=== PATIENT | male | born 1980 | race Caucasian/White ===

== ENCOUNTER 2024-04-28 16:59 | Emergency (ER) | payer OTHER, SELFPAY ==
[2024-04-28 17:13] VITALS: BP 130/86; PULSE 57; RESP 18; O2SAT 98; BMI 30.1
--- NOTE | 2024-04-28 17:24 | ED_ITS ---
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 He has a typical migraine that started last night light and it has been worse today. He gets photophobic. He can tell when it is coming on. He has frontal head pain in his head. No nuchal rigidity, no thunderclap nature to his headache. He is thinking about seeing a neurologist for this. He worse with primary care doctor in a line in [place]. He has been on a Triptan. That has not helped the headache today tried that 2 times I believe. He has had no focal neurologic complaints Related Data Home Medications ?Medication ?Instructions ?Recorded ?Confirmed [id number]-[id number] 1 cap PO QID PRN 04/28/24 04/28/24 50 mg-300 mg-40 mg capsule (Fioricet) escitalopram oxalate 20 mg tablet 20 mg PO DAILY 04/28/24 04/28/24 (Lexapro) rizatriptan .ROUTE .prn 04/28/24 Allergies Allergy/AdvReac Type Severity Reaction Status Date / Time Penicillins Allergy Severe Anaphylaxis Verified 04/28/24 17:16 amoxicillin Allergy Hives Verified 04/28/24 17:16 Review of Systems Status of ROS: Reports: 6 or more systems reviewed and unremarkable except as noted in History and below Narrative: This feels like a typical migraine him but maybe just slightly on the worse side PFSH PFSH Social History Smoking Status: Unknown if ever smoked service: Yes Exam Narrative: Exam Narrative: Objective: Vital signs are within normal limits He is alert orient x3 No apparent distress Alert orient x3 No facial asymmetry Pupils aggression light extraocular moves intact Neck is supple Neurologic upper lower extremities unremarkable, there is no focal weakness, no dysesthesia. Const: Vital Signs, click to edit/add: Vital Signs - 24 hr 04/28/24 17:13 Pulse Rate [Pulse Oximeter] 57 L Respiratory Rate 18 Blood Pressure [Ri ght Upper Arm] 130/86 Pulse Oximetry 98 Oxygen Delivery Me thod Room Air Course Vital Signs Vital signs: Initial Vital Signs Temperature Source Temporal Artery Scan 04/28/24 17:13 Pulse Rate 57 L 04/28/24 17:13 Respiratory Rate 18 04/28/24 17:13 Blood Pressure 130/86 04/28/24 17:13 Blood Pressure Mean 100 04/28/24 17:13 Blood Pressure Position Sitting 04/28/24 17:13 Pulse Oximetry 98 04/28/24 17:13 Oxygen Delivery Method Room Air 04/28/24 17:13 Vital Signs Pulse Rate 57 L 04/28/24 17:13 Respiratory Rate 18 04/28/24 17:13 Blood Pressure 130/86 04/28/24 17:13 Pulse Oximetry 98 04/28/24 17:13 Oxygen Delivery Method Room Air 04/28/24 17:13 Pulse Rate 57 L 04/28/24 17:13 Respiratory Rate 18 04/28/24 17:13 Blood Pressure 130/86 04/28/24 17:13 Pulse Oximetry 98 04/28/24 17:13 Oxygen Delivery Method Room Air 04/28/24 17:13 Medications Administered Medications: Discontinued Medications Generic Name Dose Route Start Last Admin Trade Name Freq PRN Reason Stop Dose Admin Diphenhydramine HCl 50 mg 04/28/24 17:23 04/28/24 17:40 Diphenhydramine 50 Mg/Ml Inj IVP 04/28/24 17:24 50 mg ONCE ONE Administration Sodium Chloride 1,000 mls @ 6,000 mls/hr 04/28/24 17:30 04/28/24 18:47 0.9 % Sodium Chloride 1000 Ml IV 04/28/24 17:39 Infused .Q10M MIKE Infusion Metoclopramide HCl 10 mg/ 102 mls @ 306 mls/hr 04/28/24 17:23 04/28/24 18:47 Sodium Chloride IV 04/28/24 17:24 Infused ONCE ONE Infusion Ketorolac Tromethamine 30 mg 04/28/24 17:23 04/28/24 17:40 Ketorolac 30 Mg/Ml Inj IVP 04/28/24 17:24 30 mg ONCE ONE Administration Medical Decision Making MDM Narrative Medical decision making narrative: [age] year white male with history of longstanding migraine headaches with a migraine headache. He reports that is very classic for the symptoms he gets. I suggest that he consult with a neurologist regarding headache management since he seems to be struggling with this. They could certainly see institution such as the [facility], and they may need a referral. Patient will today be given 1 L normal saline, IV Toradol 30 mg, IV Benadryl 50 mg, IV Reglan 10 mg. Disposition will be home with his and rest light activity fluids and then follow up with primary care as needed, recommend neurologic consultation as well given the frequency and chronicity of his headaches. Discharge Plan Discharge Clinical Impression: Migraine Patient Disposition: Home w/ Parent or Adult Condition: Stable Additional Instructions: Rest, light activity, follow up with primary care as needed, consider neurology consultation for headaches, continue home meds. Return as needed. Activity Level: Light activity Discharge Diet: Regular Prescriptions: No Action escitalopram oxalate [Lexapro] 20 mg tablet 20 mg PO DAILY rizatriptan .ROUTE .prn [id number]-[id number] [Fioricet] 50-300-40 mg capsule 1 cap PO QID PRN Stand Alone Forms: [facility] Info Instructions
[2024-04-28] MEDS: diphenhydrAMINE 50 MG/ML inj IVP (17:40)
[2024-04-28] MEDS: 0.9 % SODIUM CHLORIDE 1000 ml 1,000 ML 6000 ML IV (17:40)
[2024-04-28] MEDS: METOCLOPRAMIDE HCL 10 MG in 0.9 % SODIUM CHLORIDE 100 ml 100 ML 306 MG IV (17:40)
[2024-04-28] MEDS: KETOROLAC 30 MG/ML inj IVP (17:40)
== END 2024-04-28 18:43 | disposition home or self-care (01) ==
LOC: ED 17:58
PROVIDERS: Emergency Provider Family Medicine
DX: G43.909 Migraine, unspecified, not intractable, without status migrainosus (principal)
CPT/HCPCS: 96374; 96375; 99283; 99284; J1200; J1885; J2765; J7030

== ENCOUNTER 2024-05-28 20:37 | Emergency (ER) | payer OTHER, SELFPAY ==
[2024-05-28 20:45] VITALS: BP 142/78; PULSE 63; RESP 18; TEMP 36.7; O2SAT 96; BMI 36.3
--- NOTE | 2024-05-28 21:08 | CRLHL7_ITS ---
For Patients: As a result of the Century Cures Act, medical imaging exams and procedure reports are released immediately into your electronic medical record. You may view this report before your referring provider. If you have questions, please contact your health care provider. INDICATION: Cervical spine Pain at occiput TECHNIQUE: Cervical spine radiograph 3 views COMPARISON: None FINDINGS: Bone: No acute fractures or aggressive bone lesions are identified. The dens is partially obscured by the teeth and the skullbase on the open mouth odontoid view. Alignment is normal. Disc: Mild degenerative disc disease is present at C6-7. The facet joints are unremarkable. Soft tissue: Unremarkable. No radiopaque foreign bodies are seen. IMPRESSION: 1. No acute osseous injuries or abnormalities are noted. Dictated by Inocencio Nassar MD @ 05/28/2024 10:00:12 PM Dictated by: Inocencio Nassar MD @ 05/28/2024 22:00:15 (Electronically Signed)
--- NOTE | 2024-05-28 21:17 | ED_ITS ---
HPI - General Adult General Date Seen: 05/28/24 Chief complaint: Neck Injury/Pain Stated complaint: Neck pain, dizziness Time Seen by Provider: 05/28/24 20:54 Source: patient Mode of arrival: ambulatory Limitations: no limitations History of Present Illness HPI narrative: Patient is a 43-year-old male presenting to the emergency department for neck pain and dizziness. Neck pain is been going on for quite a while now but seems to be worse over the past month and a half. Was seen in primary care provider but was not getting any imaging so he scheduled a new appointment with a new provider on 06/15. 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 States he has been having neck issues for a long time. Pain is mostly around T1-C7 and at the base of his occiput. States the pain and they saw so put goes up the right side of his head and crosses over the hat line. States he is always wearing a baseball cap. States he has never had an x-ray of his neck done. Patient is also here for dizziness that started today. States is worse when he moves his head side to side. Does not state of 1 signs worse than the other. Is not dizzy at rest. Only notices when he moves. Never had these symptoms before. States he is typically very well hydrated is no history of electrolyte issues. No other concerns noted. Denies numbness, weakness, fevers, chills, diarrhea, constipation, abdominal pain, chest pain, shortness of breath. Related Data Home Medications ?Medication ?Instructions ?Recorded ?Confirmed unbjicecjb-uwacvulashrwp-ptrhlpuk 1 cap PO QID PRN 04/28/24 05/28/24 50 mg-300 mg-40 mg capsule (Fioricet) escitalopram oxalate 20 mg tablet 20 mg PO DAILY 04/28/24 05/28/24 (Lexapro) rizatriptan .Route .prn 04/28/24 Previous Rx's ?Medication ?Instructions ?Recorded meclizine 25 mg tablet 25 mg PO QID #20 tabs 05/28/24 Allergies Allergy/AdvReac Type Severity Reaction Status Date / Time Penicillins Allergy Severe Anaphylaxis Verified 05/28/24 20:49 amoxicillin Allergy Hives Verified 05/28/24 20:49 Review of Systems Status of ROS: Reports: 10 or more systems reviewed and unremarkable except as noted in History and below [facility] Social History Smoking Status: Heavy tobacco smoker What tobacco products do you use: cigarettes Smoking packs per day: 1 Smoking cigarettes per day: 20.0 Years smoked: 28 Smoking pack-years: 28.00 Do you use any of these nicotine containing products: None Second hand tobacco smoke exposure: No How often do you have a drink containing alcohol: never AUDIT-C Alcohol total score: 0 Non-prescribed substance use: marijuana (any form) service: Yes Exam Narrative: Exam Narrative: Const: Well-nourished, Well-developed, in mild distress Eyes: PERRL, no conjunctival injection, and symmetrical lids HENT: Atraumatic external nose and ears. Moist mucous membranes. Neck: Symmetric, trachea midline, No thyromegaly. CVS: RRR, No murmurs or gallops. Peripheral pulses 2+ and equal in all extremities RESP: Unlabored respiratory effort. Clear to auscultation bilaterally. GI: Nontender/Nondistended, No rebound or guarding. MSK:Extremities w/o deformity, Normal Active ROM, tenderness noticed at the base of the occiput and continues to be tender about usp up the right side of his occiput Skin: Warm, Dry. No rashes or lesions. Neuro: Normal Muscle tone, No focal neurological deficits. Psych: Awake, Alert, & Oriented x3. Appropriate mood and affect. Const: Vital Signs, click to edit/add: Vital Signs - 24 hr 05/28/24 20:45 05/28/24 21:26 05/28/24 21:32 Temperature 98.1 F Pulse Rate 64 65 Pulse Rate [Pulse Oximeter] 63 Respiratory Rate 18 20 18 Blood Pressure 122/81 114/80 Blood Pressure [Ri ght Upper Arm] 142/78 H Pulse Oximetry 96 95 96 Oxygen Delivery Me thod Room Air Room Air Room Air 05/28/24 22:02 05/28/24 22:32 Temperature Pulse Rate 58 L 58 L Pulse Rate [Pulse Oximeter] Respiratory Rate 18 18 Blood Pressure 125/81 106/90 H Blood Pressure [Ri ght Upper Arm] Pulse Oximetry 97 95 Oxygen Delivery Me thod Room Air Room Air Course Vital Signs Vital signs: Initial Vital Signs Temperature 98.1 F 05/28/24 20:45 Temperature Source Temporal Artery Scan 05/28/24 20:45 Pulse Rate 63 05/28/24 20:45 Respiratory Rate 18 05/28/24 20:45 Blood Pressure 142/78 H 05/28/24 20:45 Blood Pressure Mean 99 05/28/24 20:45 Blood Pressure Position Sitting 05/28/24 20:45 Pulse Oximetry 96 05/28/24 20:45 Oxygen Delivery Method Room Air 05/28/24 20:45 Vital Signs Temperature 98.1 F 05/28/24 20:45 Pulse Rate 63 05/28/24 20:45 Respiratory Rate 18 05/28/24 20:45 Blood Pressure 142/78 H 05/28/24 20:45 Pulse Oximetry 96 05/28/24 20:45 Oxygen Delivery Method Room Air 05/28/24 20:45 Temperature 98.1 F 05/28/24 20:45 Pulse Rate 58 L 05/28/24 22:32 Respiratory Rate 18 05/28/24 22:32 Blood Pressure 106/90 H 05/28/24 22:32 Pulse Oximetry 95 05/28/24 22:32 Oxygen Delivery Method Room Air 05/28/24 22:32 Medications Administered Medications: Discontinued Medications Generic Name Dose Route Start Last Admin Trade Name Freq PRN Reason Stop Dose Admin Ketorolac Tromethamine 30 mg 05/28/24 21:08 05/28/24 21:22 Ketorolac 30 Mg/Ml Inj IM 05/28/24 21:09 30 mg ONCE ONE Administration Meclizine HCl 25 mg 05/28/24 21:08 05/28/24 21:22 Meclizine Hcl 25 Mg Tablet PO 05/28/24 21:09 25 mg ONCE ONE Administration Medical Decision Making [facility] Narrative Medical decision making narrative: Patient is a 43-year-old male presenting for headache, neck pain, dizziness. Headache and neck pain have been going on for quite a while. The pain at the base of his also put might be related to his hat. He states so is wearing a baseball cap an this could be depression on the nerve causing pain considering the area is tender to palpation of along the right side of the occiput. Will try Toradol for this pain. Will soon x-ray to look for signs of fractures or other injuries. This dizziness started today. The differential diagnosis of vertigo is broad and includes common etiologies such as menieres disease, labyrinthitis, benign positional vertigo, otitis media, etc. More serious etio logies considered include central etiologies such as tumor, intracerebral bleed, dissection, ischemic cerebral vascular accident. At this time though considering symptoms are worse with head movement this seems most likely peripheral in nature. No history of strokes in this patient is not have risk factors for it at this time. I do not believe head CT is necessary. Will get some basic lab work CBC and BMP showed no acute concerning abnormalities. Toradol did not help the symptoms in the meclizine also did not help with the symptoms. I tried Epleys maneuver but was unsuccessful. I spoke to him about doing a CT but explained to not believe we will find any abnormalities. At this time is not want did head CT. We will try discharged him with Toradol, meclizine and prednisone. Eulalia neumann is because I believe there is some inflammation that is causing some of this pain. Patient is agreeable to this plan. Lab Data Labs: Lab Results 05/28/24 Range/Units 21:17 WBC 7.67 (4.50-11.00) K/uL RBC 4.78 (4.30-5.90) m/uL Hgb 14.9 (13.5-17.5) gm/dL Hct 42.5 (37.0-53.0) % MCV 89 (80-100) fL MCH 31 (26-34) pg MCHC 35 (32-36) gm/dL RDW Coeff of Vladislav 12.8 (11.5-15.5) % Plt Count 191 (140-440) K/uL Neut % (Auto) 50.1 (42.0-72.0) % Lymph % (Auto) 41.5 (20-44) % [place] % (Auto) 6.4 (0.0-11.0) % Eos % (Auto) 1.2 (0.0-7.0) % Baso % (Auto) 0.8 (0.0-3.0) % Neut # (Auto) 3.85 (1.7-7.0) K/uL Lymph # (Auto) 3.18 H (0.90-2.90) K/uL [place]wood # (Auto) 0.50 (0.00-0.90) K/UL Eos # (Auto) 0.09 (0.00-0.50) K/uL Baso # (Auto) 0.06 (0.00-0.30) K/uL Abs Immat Gran (auto) 0.00 (0.00-0.30) K/uL Imm/Tot Granulo (auto) 0.0 % Sodium 141 (135-149) mmol/L Potassium 3.3 L (3.6-5.1) mmol/L Chloride 106 (96-114) mmol/L Carbon Dioxide 27 (20-32) mmol/L Anion Gap 8 (7-15) mEq/L BUN 10 (5-24) mg/dL Creatinine 1.0 (0.5-1.5) mg/dL Estimated Creat Clear 103.54 Estimated GFR 97 ml/min Glucose 91 (60-115) mg/dL Calcium 9.3 (8.4-10.6) mg/dL Discharge Plan Discharge Clinical Impression: Vertigo Neck strain Qualifiers: Encounter type: initial encounter Qualified Code(s): S16.1XXA - Strain of muscle, fascia and tendon at neck level, initial encounter Patient Disposition: Home, Self-Care Condition: Stable Instructions: Vertigo (DC) Additional Instructions: Try using the Toradol and prednisone to see if it helps with the pain and inflammation that may be causing your pain. These were prescribed active instymeds think we picked up near the front office developer. I also sent meclizine to your pharmacy which can help with peripheral vertigo. Return for new or worsening symptoms. Prescriptions: New meclizine 25 mg tablet 25 mg PO QID Qty: 20 0RF No Action escitalopram oxalate [Lexapro] 20 mg tablet 20 mg PO DAILY rizatriptan .Route .prn [id number]-ucoaanoyhprqb-[id number] [Fioricet] 50-300-40 mg capsule 1 cap PO QID PRN Follow Up/Referrals: Provider,Not a Local [Primary Care Provider] - Stand Alone Forms: [facility] Info Instructions
[2024-05-28 21:21] LABS: Basophils Absolute Auto 0.06 K/uL (0.00-0.30); Basophils Percent Auto 0.8 % (0.0-3.0); Eosinophils Absolute Auto 0.09 K/uL (0.00-0.50); Eosinophils Percent Auto 1.2 % (0.0-7.0); Hematocrit 42.5 % (37.0-53.0); Hemoglobin* 14.9 gm/dL (13.5-17.5); Lymphocytes Absolute Auto 3.18 K/uL (0.90-2.90); Lymphocytes Percent Auto 41.5 % (20-44); Mean Corpuscular HGB Conc 35 gm/dL (32-36); Mean Corpuscular Hemoglobin 31 pg (26-34); Mean Corpuscular Volume 89 fL (80-100); Monocytes Percent Auto 6.4 % (0.0-11.0); Neutrophils Absolute Auto 3.85 K/uL (1.7-7.0); Neutrophils Percent Auto 50.1 % (42.0-72.0); Platelet Count* 191 K/uL (140-440); RDW Coefficient of Variation % 12.8 % (11.5-15.5); Red Blood Count 4.78 m/uL (4.30-5.90); White Blood Count* 7.67 K/uL (4.50-11.00)
[2024-05-28] MEDS: KETOROLAC 30 MG/ML inj IM (21:22)
[2024-05-28] MEDS: MECLIZINE HCL 25 MG TABLET PO (21:22)
[2024-05-28 21:26] VITALS: BP 122/81; PULSE 64; RESP 20; O2SAT 95
[2024-05-28 21:28] LABS: Slide Review Reflex No
[2024-05-28 21:32] VITALS: BP 114/80; PULSE 65; RESP 18; O2SAT 96
[2024-05-28 21:37] LABS: Chloride* 106 mmol/L (96-114); Potassium* 3.3 mmol/L (3.6-5.1); Sodium* 141 mmol/L (135-149)
[2024-05-28 21:40] LABS: Anion Gap 8 mEq/L (7-15); Carbon Dioxide* 27 mmol/L (20-32); Est. Creatinine Clearance* 103.54; Estimated Glomerular Filt Rate 97 ml/min
[2024-05-28 21:41] LABS: Blood Urea Nitrogen* 10 mg/dL (5-24); Calcium* 9.3 mg/dL (8.4-10.6); Glucose* 91 mg/dL (60-115)
[2024-05-28 22:02] VITALS: BP 125/81; PULSE 58; RESP 18; O2SAT 97
[2024-05-28 22:32] VITALS: BP 106/90; PULSE 58; RESP 18; O2SAT 95
[2024-05-28 23:02] VITALS: BP 136/90; PULSE 57; RESP 18; O2SAT 95
== END 2024-05-28 23:12 | disposition home or self-care (01) ==
PROVIDERS: Emergency Provider Student in an Organized Health Care Education/Training Program
DX: R42 Dizziness and giddiness (principal); S16.1XXA Strain of muscle, fascia and tendon at neck level, initial encounter
CPT/HCPCS: 36415; 72040; 80048; 85025; 96372; 99283; 99284; A9270; J1885